=== PATIENT | female | born 1970 | race Caucasian/White ===

== ENCOUNTER 2016-08-23 13:29 | Inpatient (IN) | payer BC ==
[~2016-08-23] VITALS: Ht 154.9 cm; Wt 87.9 kg
[2016-08-23 14:52] VITALS: BP 136/93; PULSE 58; TEMP 37; O2SAT 97; Ht 154.9 cm; Wt 87.9 kg
--- NOTE | 2016-08-23 15:14 | History and Physical ---
"History & Physical Date of Service Aug 23, 2016. History & Physical Chief complaint:2nd degree AVB, exertional CP and SOB History of Present Illness: 45 year old female presented to the [facility] today for elective exercise stress ECHO. Patient has been experiencing exertional shortness of breath and exertional chest tightness since February of this year. Her symptoms have been stable over the past few months, however, notes significant exercise intolerance. Notes symptoms with moderate levels of exertion including walking on an incline. Symptoms were reproduced during stress testing today. During her stress test patient developed second-degree AV block Mobitz type 2 during low levels of exercise. The AV block persisted throughout exercise and into recovery. She was symptomatic. All symptoms resolved during recovery. She denies any lightheadedness, dizziness, syncope or near syncope. No history of tick bites or thyroid dysfunction. Denies history of myocardial infarction, congestive heart failure, diabetes, hypertension, kidney disease, or rheumatic fever as a child. All patient 's symptoms have been exertional. Denies any symptoms at rest. No family history of conduction disease or premature atherosclerotic coronary artery disease. She carries a diagnosis of dyslipidemia. Currently takes no prescription medications aside from p.r.n. Zyrtec. Offers no other complaints at this time. Decision was made for direct admission to [facility] for EP evaluation and likely PPM placement once laboratory studies come back unremarkable. EKG: Resting ECG during stress testing demonstrates sinus rhythm at 78 beats per minute Exercise stress echocardiography performed today demonstrates below average exercise tolerance secondary to exercise-induced second-degree AV block Mobitz type 2. No evidence of inducible ischemia at low heart rate. Past Medical History: Patient Active Problem List Diagnosis Code INITIATE CONTRACEPT NEC Z30.09 Varicella without complication B01.9 ADVANCE DIRECTIVE INFORMATION Globus hystericus F45.8 Dysphagia R13.10 Chronic throat clearing R68.89 Thyroid cyst E04.1 Abnormal chest x-ray R93.8 Past Surgical History: Procedure Laterality Date DENTAL SURGERY PROCEDURE NEC Dental Surgery Procedure VAGINAL DELIVERY ONLY times 2 Family History: Denies family history of premature coronary artery disease, dysrhythmia, sudden cardiac , or congestive heart failure. Family History Problem Relation Age of Onset Heart Disorder Mother triple bypass Hypertension Mother Hypertension Father Asthma Father Allergies Father etoh abuse [OTHER] Father No Past Hx Brother No Past Hx Daughter No Past Hx Son Cancer Father prostrate Cancer Aunt maternal /breast Cancer Uncle throat/smoker Lung Disorder Father copd Family Status Relation Status Mother Alive Father Alive Brother Alive Daughter Alive Son Alive Mother Mother Father Father Father Father Brother Daughter Son Father Aunt Uncle Father Social History Social History Marital status: Spouse name: N/A Number of children: N/A Years of education: N/A Occupational History Not on file. Social History Main Topics Smoking status: Never Smoker Smokeless tobacco: Never Used Alcohol use Yes Comment: occassional Drug use: No Sexual activity: Not Currently Partners: Male control/ protection: Rhythm Other Topics Concern Service No Blood Transfusions No Caffeine Concern No Occupational Exposure No Hobby Hazards No Sleep Concern No Stress Concern No Weight Concern No Special Diet No Back Care No Exercise No Seat Belt Yes Self-Exams Yes Social History Narrative Social History Social History Narrative ROS: Pertinent positives as per HPI, comprehensive 10 system review otherwise negative. Review of patient's allergies indicates: No Known Allergies Current Outpatient Prescriptions Medication Sig Dispense Refill Cetirizine HCl 10 MG Capsule Take 10 mg by mouth daily. OBJECTIVE/PHYSICAL EXAMINATION: BP 124/60 | Pulse 64 | Wt 196 lbs (88.905kg) | BMI 36.49 kg/m | BSA 1.96 m General: NAD, AAO x3, well nourished. Overweight. HEENT: Normocephalic. Atraumatic. Conjunctiva pink, no scleral icterus. No carotid bruits, the carotid upstrokes are brisk. No JVD. No HJR Heart: Regular with intermittent bradycardia and heart rate down into the 40s during auscultation. normal S-1 and S-2 no S-3 or S-4 gallop. No murmurs or rubs appreciated. PMI is not displaced. No RV heave. Lungs: Clear bilateral without rales , rhonchi, or wheeze. Abdomen: Normal bowel sounds. Soft. Nontender. No masses or organomegaly. No abdominal bruits. Extremities: No clubbing, cyanosis, or edema. Pulses: radial=2/4, Dorsalis pedis =2/4, posterior tibial=2/4. Neuro: No focal deficits. IMPRESSION: 1. 45-year-old female with exertional SOB and chest tightness presents today for exercise stress echocardiography. Patient developed second-degree AV block Mobitz type 2 during low levels of exercise. Symptoms reproduced during stress testing in the presence of second-degree AV block Mobitz type 2. PLAN: 1. Inducible 2:1 AV block pathophysiology discussed with patient at [facility] and again now will proceed with secondary workup, essentially blood tests will ask Dr. Bar to evaluate, appreciate input likely PPM placement in AM if no reversible cause found no medications at this time atropine to bedside npo after midnight"
[2016-08-23] MEDS ORDERED: ZOLPIDEM TARTRATE 5 MG TAB PO PRN ×2 (15:15)
[2016-08-23] MEDS ORDERED: ACETAMINOPHEN 325 MG TAB PO PRN (15:15)
[2016-08-23] MEDS ORDERED: POLYETHYLENE (MIRALAX) 17 GM PACK PO PRN (15:15)
[2016-08-23] MEDS ORDERED: ALUMINUM/MAGNESIUM/SIMETH (MAALOX MAX) 30 ML UDC PO PRN (15:15)
[2016-08-23] MEDS ORDERED: MAGNESIUM HYDROXIDE SUSP 30 ML UDC PO PRN (15:15)
[2016-08-23 15:35] VITALS: BP 126/85; PULSE 62; TEMP 36.6; O2SAT 96
[2016-08-23 15:55] LABS: MEAN CELL VOLUME 77.7 fL (80-100); MEAN CORPUSCULAR HEMOGLOBIN 26.5 pg (25-34); PLATELET COUNT 269 K/uL (130-400); RED BLOOD COUNT 5.28 M/uL (4.2-5.4); WHITE BLOOD COUNT 4.91 K/uL (4.8-10.8)
[2016-08-23 16:07] LABS: INR 0.9 (0.9-1.1); PARTIAL THROMBOPLASTIN RATIO 1.1
[2016-08-23 16:10] LABS: MEAN CORPUSCULAR HGB CONC 34.1 g/dl (32-36)
--- NOTE | 2016-08-23 16:34 | Cardiology Consultation ---
Cardiology Consultation Date of Consultation: Aug 23, 2016. Requesting Physician: Jose Coronado Reason for Consultation: Heart block Pt evaluation today including: conversation w/ patient, conversation w/ family , physical exam, chart review, conversation w/ communication consultant, conversation w/ attending History of Present Illness Patient is a 45-year-old woman who reports exercise intolerance dating back several months. Patient states that around December of 2015 she began to experience some symptoms of exercise intolerance. This is manifest primarily by dyspnea on exertion and an element of right-sided chest discomfort. She has read this discomfort as a pressure sensation sometimes radiating into the right side of the neck. At the time she felt this was related to deconditioning however the symptoms persisted and eventually became worse. Patient underwent exercise echocardiography earlier today which revealed evidence of inducible heart block. Patient had reproduction of her symptoms during low levels of exercise today. She does not have symptoms at rest. She is able form routine activity including walking long distances at a moderate pace without symptoms. When walking up an incline or performing more significant activity she develops the associated dyspnea and chest discomfort. She has rare episodes of dizziness which are longstanding in nature and not changed recently. She has not suffered any presyncopal or syncopal episodes. She has rare symptoms of tachycardia which are brief in duration but no other palpitations. Past Medical/Surgical History Thyroid cyst Dysphagia Surgical history Vaginal delivery x2 Family History Mother had cardiac surgery in her 60s. Father had atrial flutter and ablation. Brother appears healthy without cardiac disease. Social History Smoking Status: Never Smoker History of Alcohol Use: No Patient did not report recent symptoms of fevers or chills. She has no arthralgias or rashes. She did travel late last year but did not spend much time outdoors. She states she has a experienced mild weight gain. She has an element of heat intolerance related to menopause. Otherwise she feels cold most of the time. She has not noticed any change in her bowel habits. All Other Systems: Reviewed and Negative Allergies Coded Allergies: No Known Allergies (Verified , 09/28/11) Medications Current Inpatient Medications Medications (Trade) Dose Ordered Sig/Yani Route Start Time Stop Time Status Last Admin Dose Admin Acetaminophen (Tylenol Tab) 650 mg Q4H PRN PO 08/23/16 15:15 09/22/16 15:14 Al Hydrox/Mg Hydrox/Simethicone (Maalox Max Susp) 15 ml Q4H PRN PO 08/23/16 15:15 09/22/16 15:14 Magnesium Hydroxide (Milk Of Magnesia Susp) 30 ml Q12H PRN PO 08/23/16 15:15 09/22/16 15:14 Zolpidem Tartrate (Ambien Tab) 5 mg HSZ PRN PO 08/23/16 15:15 09/22/16 15:14 Ondansetron HCl (Zofran Inj) 4 mg Q6H PRN IV 08/23/16 15:15 09/22/16 15:14 Polyethylene (Miralax Powder Packet) 17 gm DAILY PRN PO 08/23/16 15:15 09/22/16 15:14 Cetirizine HCl (zyrTEC TAB) 10 mg QAM PO 08/24/16 09:00 09/23/16 08:59 Physical Exam Vital Signs Past 12 Hours Date Time Temp Pulse Resp B/P (MAP) Pulse Ox O2 Delivery O2 Flow Rate FiO2 08/23/16 15:35 36.6 62 20 126/85 (99) 96 Room Air 08/23/16 14:52 37.0 58 18 136/93 97 Room Air She is alert and oriented x3. Mood affect appear normal. She answered all questions appropriately. HEENT: Sclerae are anicteric. Pupils are equal and reactive to light and accommodation. Extraocular movements were intact. Neuro: Cranial nerves intact Neck: Examination of the submandibular region did not reveal any significant lymphadenopathy. Carotids are palpable bilaterally and free of bruits on auscultation. There was no evidence of jugular venous distention. The thyroid was not enlarged. Lungs: Lungs are clear to auscultation bilaterally. There are no rales wheezes or rhonchi. She has normal respiratory effort without use of accessory muscles. There is normal pulmonary excursion. Cardiac: The rhythm was regular. S1 and S2 were normal. There are no murmurs on examination. The PMI was not markedly displaced on palpation. Abdomen: The abdomen was soft and nontender. Extremities: Patient has bilateral radial pulses that are equal in intensity. There is no evidence cyanosis or clubbing. There was no evidence of significant peripheral edema bilaterally. Skin: There are no rashes noted on examination today. Data Laboratory Results: Last 24 Hours Test 08/23/16 15:45 White Blood Count 4.91 K/uL Red Blood Count 5.28 M/uL Hemoglobin 14.0 g/dL Hematocrit 41.0 % Mean Corpuscular Volume 77.7 fL Mean Corpuscular Hemoglobin 26.5 pg Mean Corpuscular Hemoglobin Concent 34.1 g/dl RDW Standard Deviation 39.6 fL RDW Coefficient of Variation 14.0 % Platelet Count 269 K/uL Mean Platelet Volume 10.0 fL Prothrombin Time 10.0 SECONDS Prothromb Time International Ratio 0.9 Activated Partial Thromboplast Time 28.8 SECONDS Partial Thromboplastin Ratio 1.1 Imaging: Echocardiography reportedly normal EKG: Normal EKG with narrow complex QRS Telemetry reviewed: Evidence of Mobitz 2 conduction Assessment & Plan 1. Mobitz 2 heart block: Patient has Mobitz 2 heart block at rest and reportedly had worsening conduction with exercise. This is consistent with infra-Hisian disease and a less stable form of heart block. Generally speaking a pacemaker would be indicated in this circumstance. She also has symptoms referable to the heart block and a sense that she has chronotropic incompetence with exercise. The etiology of her heart block is unclear. She does not have a prodrome consistent with acute Lyme disease. She does not have other symptoms of hypothyroidism. There is not appear to be an iatrogenic component. There is the possibility of an infiltrative process such as sarcoid or amyloid , but she has no other manifestations. This point there does not appear to be an obvious reversible cause of her heart block, and in this setting a pacemaker would be indicated. I did discuss the risks benefits and alternatives to permanent pacing with the patient and her family. They are agreeable with proceeding if necessary. At this point we will wait some of the serum studies and make plans for permanent pacer implantation in the morning should no reversible cause be discovered.
[2016-08-23 16:52] LABS: LYME DISEASE AB IGM NEG (NEG)
[2016-08-23 16:53] LABS: LYME DISEASE AB IGG NEG (NEG)
[2016-08-23 17:09] LABS: ALB/GLOB RATIO 1.2 (0.9-2); BUN/CREATININE RATIO 12.6 (10-20); CALCIUM 9.5 mg/dl (8.5-10.1); CREATININE 0.76 mg/dl (0.60-1.20); POTASSIUM 3.8 mmol/L (3.5-5.1); THYROID STIMULATING HORMONE 1.36 uIu/ml (0.300-4.500)
[2016-08-23 19:30] VITALS: BP 132/87; PULSE 60; TEMP 36.6; O2SAT 95
[2016-08-23 23:52] VITALS: BP 126/81; PULSE 56; TEMP 36.5; O2SAT 97
[2016-08-24 04:01] VITALS: BP 138/86; PULSE 80; TEMP 36.6; O2SAT 96
[2016-08-24] MEDS ORDERED: CEFAZOLIN IV 2,000 MG/60 ML D5W IV SCH (06:00)
[2016-08-24 07:33] VITALS: BP 118/76; PULSE 66; TEMP 37.1; O2SAT 96
[2016-08-24] MEDS: CETIRIZINE HCL 10 MG TAB PO SCH (07:34)
--- NOTE | 2016-08-24 10:37 | Cardiology Follow-Up ---
Subjective Subjective Date of Service: Aug 24, 2016. Pt evaluation today including: conversation w/ patient, physical exam, chart review, lab review, review of studies, review of inpatient medication list Additional Details: Pt seen and examined, states that she feels ok, anxious to get pacer over with. Denies cp, sob, palpitations, lightheadedness or dizziness. Tele reviewed: sinus rhythm with occasional 2:1 AV block. Review of Systems Respiratory: No see HPI, No cough, No sputum, No wheezing, No shortness of breath, No dyspnea on exertion, No dyspnea at rest, No hemoptysis, No problem reported Cardiac: No see HPI, No chest pain, No orthopnea, No PND, No edema, No claudication, No palpitations, No problem reported Objective Vital Signs Last Vital Signs Documentation Date Time Temp Pulse Resp B/P (MAP) Pulse Ox O2 Delivery O2 Flow Rate FiO2 08/24/16 08:00 Room Air 08/24/16 07:33 37.1 66 16 118/76 (90 96 Physical Exam: General Appearance: WD/WN, no apparent distress Eyes: bilateral eyes normal inspection, bilateral eyes PERRL, bilateral eyes EOMI ENT: normal ENT inspection, hearing grossly normal, pharynx normal Neck: supple, no adenopathy, thyroid normal, no JVD, no carotid bruits, trachea midline Respiratory/Chest: chest non-tender, lungs clear, normal breath sounds, no respiratory distress, no accessory muscle use Cardiovascular: regular rate, rhythm, no edema, no gallop, no JVD, no murmur Abdomen: normal bowel sounds, non tender, soft, no organomegaly Extremities: normal range of motion, non-tender, normal inspection, no pedal edema, no calf tenderness Neurologic/Psychiatric: finish specialist II-XII nml as tested, no motor/sensory deficits, alert, normal mood/affect, oriented x 3 Skin: normal color, warm/dry, no rash Lymphatic: no adenopathy Assessment and Plan 1. Inducible 2:1 AV block clinically stable no reversible cause on lab work no risk factors for CAD primary conduction system disease appreciate Dr. Bar's input, for PPM today will then monitor overnight and likely d/c in AM
[2016-08-24 11:24] VITALS: BP 148/83; PULSE 64; TEMP 36.9; O2SAT 93
[2016-08-24] MEDS ORDERED: LIDOCAINE HCL 1% 20 ML VIAL ONE (12:04)
[2016-08-24] MEDS ORDERED: BUPIVACAINE 0.5 % 5 MG/1 ML MPF 30ML VIAL ONE (12:04)
[2016-08-24] MEDS ORDERED: BACITRACIN 50000 UNIT VIAL ONE (12:05)
[2016-08-24] MEDS ORDERED: FENTANYL CITRATE INJ 50 MCG/1 ML 2 ML VIAL ONE (12:11)
[2016-08-24] MEDS: MIDAZOLAM HCL 5 MG/ML 1 ML VIAL ONE (12:11)
[2016-08-24] MEDS ORDERED: KEFZOL SPECIAL PROCEDURE STOCK 1 GM ADDVIAL IV ONE (12:15)
--- NOTE | 2016-08-24 12:28 | Procedure Note ---
Pre-Mod Sedation Assessment General Date of Moderate Sedation: Aug 24, 2016. Vital Signs: Vital Signs Past 12 Hours Date Time Temp Pulse Resp B/P (MAP) Pulse Ox O2 Delivery O2 Flow Rate FiO2 08/24/16 12:04 Room Air 08/24/16 11:24 36.9 64 16 148/83 (104) 93 08/24/16 08:00 Room Air 08/24/16 07:33 37.1 66 16 118/76 (90) 96 08/24/16 04:01 36.6 80 18 138/86 (103) 96 Room Air 08/24/16 04:00 Room Air Review Airway Class: II Pre-Sedation Airway Assessment Oral Cavity: WNL Able to Visualize Vocal Cords: No Short Thick Neck: No Hx of Sleep Apnea: No Smoking Status: Never Smoker Mallampati Classification: Class III ASA Classification: Class III Procedure Planning Contraindications-for Mod Sed: None Yes Notes The planned sedation has been discussed with the patient and consent obtained. I have identified the patient, determined the appropriateness of sedation and have assessed the patient immediately prior to the procedure. All medicine(s) and interventions are by my order.
--- NOTE | 2016-08-24 13:38 | Procedure Note ---
Post-Mod Sedation Assessment General Date of Moderate Sedation Aug 24, 2016. Vital Signs: Vital Signs Past 12 Hours Date Time Temp Pulse Resp B/P (MAP) Pulse Ox O2 Delivery O2 Flow Rate FiO2 08/24/16 13:27 70 16 120/74 (89) 96 Room Air 08/24/16 13:12 70 16 112/71 (85) 99 Mask 3 08/24/16 12:04 Room Air 08/24/16 11:24 36.9 64 16 148/83 (104) 93 08/24/16 08:00 Room Air 08/24/16 07:33 37.1 66 16 118/76 (90) 96 08/24/16 04:01 36.6 80 18 138/86 (103) 96 Room Air 08/24/16 04:00 Room Air Review - Discharge Criteria Vital Signs Stable: Yes Alert/Oriented/Conversant: Yes Returned to Baseline Mental St: Yes Nausea Absent/Minimal: Yes Pain/Discomfort/Absent/Minimal: Yes Normal/Baseline Respirations: Yes Active Bleeding?: No Pt Received D/C Instructions: N/A Prescriptions Given: None Specific Proced. D/C Criteria Distal Pulses Present (Cardiac: N/A Groin site assessed-Card Cath: N/A Voided Prior To Discharge: N/A Discharged Patients Adult Escort/Transportation: N/A
[2016-08-24] MEDS ORDERED: OXYCODONE HCL IR 5 MG TAB (IMMEDIATE RELEASE) PO PRN (13:45)
[2016-08-24] MEDS: ONDANSETRON INJ 2 MG/ML 2 ML VIAL IV PRN (13:48)
[2016-08-24 13:49] VITALS: BP 98/64; PULSE 59; TEMP 36.6; O2SAT 87
--- NOTE | 2016-08-24 14:33 | [facility] Operative Report ---
Operative Report Operative Date Aug 24, 2016. Pre-Operative Diagnosis Second-degree heart block Post-Operative Diagnosis Second-degree heart block Procedure(s) Performed Implantation of dual-chamber permanent pacemaker Surgeon Yosvany Learning Manager Surgeon(s) None Estimated Blood Loss 5 cc Findings Patient was advised to have implantation of a dual-chamber permanent pacemaker for symptomatic non reversible AV node dysfunction. A dual-chamber device was selected as the patient is currently in sinus rhythm we wish to maintain AV synchrony. Patient was brought to the electrophysiology suite in a fasting state. Preoperative antibiotics had been administered patient was monitored electrocardiographically throughout today's procedure and conscious sedation was administered per protocol. The left upper pectoral area is prepped and draped in usual sterile fashion. This area was anesthetized using subcutaneous administration of lidocaine solution. An incision was made at this site and carried down to the prepectoralis fascia using sharp dissection. Electrocautery was also employ for dissection as well as for hemostasis. A device pocket was fashioned in the tissues above the pectoralis muscle. Subsequent to this maneuver the left axillary vein was accessed twice using modified Seldinger technique. Sheaths were placed over guidewires at this site in used for passage of leads to the right atrium and right ventricle under fluoroscopic guidance. Adequate sensing and threshold parameters were obtained prior to Active fixation of these leads to the endocardial surface. The proximal portion of the leads were then sutured to the prepectoralis fascia. The device pocket was irrigated with an antibiotic solution. The leads were then attached to the device. The device and leads were then placed in the pocket the pocket was closed in 3 layers of absorbable suture. Steri-Strips and a sterile dressing were applied. The device was tested noninvasively prior to conclusion of the procedure. The patient tolerated procedure well there no immediate complications. Equipment used. New pulse generator. Tube Lancer MedPure Focus. Model number A2DR01. Serial number [id number] Right atrial lead. Tube Lancer Medtronic. Model 4. 076. Serial number [id number] Right ventricular lead. Tube Lancer Medtronic. Model 4. 076. 0 number [id number] Measured data: P-waves measured 2.8 millivolts. Pacing threshold was 0.4 volts at 0.5 milliseconds with a pacing impedance of 690 Ohms R-waves measured 6.2 millivolts. Pacing threshold was 0.5 volts at 0.4 milliseconds with a pacing impedance of 682 Ohms Complication(s) None Disposition PCU I attest to the content of the Intraoperative Record and any orders documented therein. Any exceptions are noted below.
[2016-08-24 15:37] VITALS: BP 114/74; PULSE 72; TEMP 36.8; O2SAT 94
[2016-08-24 19:04] VITALS: BP 124/79; PULSE 64; TEMP 37.2; O2SAT 92
[2016-08-24] MEDS: ACETAMINOPHEN 325 MG TAB PO PRN (19:24)
[2016-08-24] MEDS: CEFAZOLIN IV 2,000 MG in DEXTROSE 5% 50ML 50 ML IV SCH (20:22)
[2016-08-25 00:12] VITALS: BP 126/78; PULSE 74; TEMP 36.7; O2SAT 95
[2016-08-25 03:51] VITALS: BP 132/81; PULSE 68; TEMP 36.6; O2SAT 95
[2016-08-25] MEDS: CEFAZOLIN IV 2,000 MG in DEXTROSE 5% 50ML 50 ML IV SCH (05:11)
[2016-08-25] MEDS: ACETAMINOPHEN 325 MG TAB PO PRN (06:01)
[2016-08-25 06:05] VITALS: BP 99/67
[2016-08-25] MEDS: ONDANSETRON INJ 2 MG/ML 2 ML VIAL IV PRN (06:11)
--- NOTE | 2016-08-25 07:23 | DIAGNOSTIC IMAGING REPORT ---
CHEST 2 VIEWS ROUTINE CLINICAL HISTORY: Pacer maker insertion. COMPARISON STUDY: No previous studies for comparison. FINDINGS: A dual lead left subclavian pacemaker is in place. Lead tips project over the right atrial appendage and right ventricle. There is no pneumothorax or pleural effusion. There is no evidence of pulmonary edema. Cardiac size is normal. Minimal left lower lung opacity suggests atelectasis. IMPRESSION: No pneumothorax following placement of a dual lead left subclavian pacemaker. Electronically signed by: Nathaniel Reyez M.D. 08/25/2016 7:22 AM Dictated Date/Time: 08/25/2016 7:20 AM
[2016-08-25] MEDS: CETIRIZINE HCL 10 MG TAB PO SCH (07:36)
--- NOTE | 2016-08-25 07:55 | Progress Note ---
Progress Note Date of Service Aug 25, 2016. Progress Note Patient feeling well. Mild nausea this AM which has resolved. Mild pain at the implant site WOund C/D/I. No hematoma. Interrogation reveals good lead function. CXR demonstrates good lead position without PTX Impression: Successful implant of dual chamber pacemaker without complication. Plan: OK to D/C home. F/U 1 week for wound check Keep wound dry and steri-strip intact until f/u in 1 week. No lifting left arm above shoulder or behind neck for 6 weeks.
[2016-08-25 07:59] VITALS: BP 111/73; PULSE 87; TEMP 36.4; O2SAT 93
--- NOTE | 2016-08-25 08:49 | Discharge Instructions ---
Discharge Instructions Date of Service Aug 25, 2016. Admission Reason for Admission: Second Degree Heartblock Discharge Discharge Diagnosis / Problem: Second Degree Heart Block Discharge Goals Goal(s): Therapeutic intervention Activity Recommendations Activity Limitations: per Instructions/Follow-up section Shower/Bathe: keep incision dry Driving or Machine Use: ACTIVITY RECOMMENDATIONS: * Do not raise affected arm over head for 2 weeks. SPECIAL CARE INSTRUCTIONS: * If bleeding occurs, apply direct pressure to area for 5 minutes. * Call your doctor if you have severe pain, fever, drainage or bleeding at site. * Keep dressing on and dry for 48 hours then remove. * Keep any scheduled doctor's appointment. * Implant Card - hand held device with website information given. SKIN IRRITATION: * You may experience some redness and/or swelling in the area where radiation was administered. If any skin irritation occurs, please contact your family physician. FOLLOW UP VISIT: Keep any scheduled doctor appointments. . Instructions / Follow-Up Instructions / Follow-Up Call on SaturdayAugust 27 for follow[facility]up with [facility]. Current Hospital Diet Patient's current hospital diet: Regular Diet Discharge Diet Recommended Diet: Regular Diet Procedures Procedures Performed: Pacemaker Pending Studies Studies pending at discharge: no Work Instructions Return To Work: after follow-up Medical Emergencies . Who to Call and When: Medical Emergencies: If at any time you feel your situation is an emergency, please call 911 immediately. . Non-Emergent Contact Non-Emergency issues call your: Smelter Operator Call Non-Emergent contact if: you have a fever, wound has increased drainage, wound has increased redness, wound has increased pain . . "Provider Documentation" section prepared by Selwyn Sheppard. . VTE Core Measure Inpt VTE Proph given/why not?: Contraindicated
[2016-08-25 09:05] VITALS: BP 111/73; PULSE 87; TEMP 36.4; O2SAT 93
--- NOTE | 2016-09-05 09:37 | Discharge Summary ---
Discharge Summary Dates Admission Date / Time: Aug 23, 2016 at 13:51 Discharge Date: Aug 25, 2016 Dispostion / Condition Discharge Disposition: Home Condition at Discharge: Good Principal Diagnosis (1) Heart bloc atrioventricular Total Time Total Time Spent (min): 30 Total Time Includes: examination of the patient, discharge planning, medication reconciliation Discharge Instructions ACTIVITY RECOMMENDATIONS: * Do not raise affected arm over head for 2 weeks. SPECIAL CARE INSTRUCTIONS: * If bleeding occurs, apply direct pressure to area for 5 minutes. * Call your doctor if you have severe pain, fever, drainage or bleeding at site. * Keep dressing on and dry for 48 hours then remove. * Keep any scheduled doctor's appointment. * Implant Card - hand held device with website information given. SKIN IRRITATION: * You may experience some redness and/or swelling in the area where radiation was administered. If any skin irritation occurs, please contact your family physician. FOLLOW UP VISIT: Keep any scheduled doctor appointments. Copies To Primary Care Provider: Steve Ga III, M.D..
== END 2016-08-25 10:07 | disposition home or self-care (01) | DRG 244 ==
LOC: C.2T 13:51
PROVIDERS: ADMIT Internal Medicine Cardiovascular Disease; ATTEND Internal Medicine Cardiovascular Disease
PROC: 0JH636Z Insertion of Pacemaker, Dual Chamber into Chest Subcutaneous Tissue and Fascia, Percutaneous Approach (ICD-10-PCS; principal; 2016-08-24 11:49)
PROC: 02H63JZ Insertion of Pacemaker Lead into Right Atrium, Percutaneous Approach (ICD-10-PCS; principal; 2016-08-24 11:49)
PROC: 02HK3JZ Insertion of Pacemaker Lead into Right Ventricle, Percutaneous Approach (ICD-10-PCS; principal; 2016-08-24 11:49)
DX: I44.1 Atrioventricular block, second degree (principal); E78.5 Hyperlipidemia, unspecified